=== PATIENT | female | born 1945 | race Caucasian/White ===

== ENCOUNTER 2022-01-31 01:29 | Emergency (ER) | payer MEDICARE, OTHER ==
[2022-01-31] MEDS: Sodium Chloride 0.9% 10 ML Syringe FLUSH PRN (01:56)
[2022-01-31] MEDS: Aspirin 81 MG Tab.Chew PO ONE (02:00)
[2022-01-31 02:09] LABS: TROPONIN I HIGH SENSITIVITY 7.2 pg/mL (<=60.3)
[2022-01-31] MEDS: Alum Hydrox/Mag Hydrox/Simeth 15 ML, Lidocaine 2% 15 ML PO ONE ×2 (02:28)
== END 2022-01-31 04:40 | disposition home or self-care (01) ==
LOC: JP.ED 01:29
DX: R07.89 Other chest pain (principal); R03.0 Elevated blood-pressure reading, without diagnosis of hypertension; Z88.2 Allergy status to sulfonamides
CPT/HCPCS: 36415; 80048; 80076; 84484; 85025; 93005; 99285; A9270; J3490

== ENCOUNTER 2022-02-01 22:04 | Emergency (ER) | payer MEDICARE, OTHER ==
[2022-02-01 22:44] LABS: ESTIMATED GFR 58 mL/min (>60); TROPONIN I HIGH SENSITIVITY 6.2 pg/mL (<=60.3)
[2022-02-01] MEDS: Alum Hydrox/Mag Hydrox/Simeth 15 ML, Lidocaine 2% 15 ML PO ONE ×2 (23:26)
== END 2022-02-02 00:37 | disposition home or self-care (01) ==
LOC: JP.ED 22:04
DX: K80.70 Calculus of gallbladder and bile duct without cholecystitis without obstruction (principal); Z88.2 Allergy status to sulfonamides; Z90.710 Acquired absence of both cervix and uterus
CPT/HCPCS: 36415; 74019; 74019-26; 80053; 83690; 84484; 85025; 86140; 87338; 93005; 93010; 99284; 99285; A9270-GY